=== PATIENT | male | born 2005 | race Caucasian/White ===

== ENCOUNTER 2025-01-24 17:55 | Emergency (ER) | payer BC, SELFPAY ==
--- NOTE | 2025-01-24 18:03 | ED_ITS ---
HPI - General Adult General Chief complaint: General Medical Stated complaint: sent him to have enzymes check per EKG done Time Seen by Provider: 01/24/25 18:57 Source: patient Mode of arrival: ambulatory Limitations: no limitations History of Present Illness ED Provider: ASHLEY BELLE PA-C HPI narrative: 19-year-old male with no significant pmhx presents to the ED today from urgent care for evaluation of epigastric pain/burning primarily after eating x a few days. No radiation of pain. No nausea, vomiting, diarrhea. Reports temporarily with Pepcid and Tums. He presented to urgent care today where he had a normal EKG. They suspected acid reflux and prescribed him omeprazole however recommended that he come to the ED to have his cardiac enzymes checked. He denies any pain/burning sensation present. No surgical history. No medical history. Related Data Allergies Allergy/AdvReac Type Severity Reaction Status Date / Time No Known Allergies Allergy Verified 01/24/25 18:06 Review of Systems 2 Review of Systems: Yes all other systems are reviewed and are negative PMFSH Past Medical History Attestation statement: The following information was validated with the patient. Source: old records reviewed and nursing notes reviewed Social History Social History Advance Directives: No Advance Directives Information Provided: No Physical Exam ED Vital Signs: Vital Signs - 24 hr 01/24/25 18:04 Temperature 97.8 F Pulse Rate 99 Respiratory Rate 18 Blood Pressure 132/63 Pulse Oximetry 99 Oxygen Delivery Method Room Air BMI result Body Mass Index 17.7 vital signs stable General: Well appearing, in no acute distress. Skin: Warm, dry, intact. No rashes or lesions. Head: Normocephalic, atraumatic. EENT: Hearing is intact b/l. Conjunctiva clear. PERRLA. EOM intact. Moist mucous membranes.? Neck: Supple without LAD Cardiac: Chest wall symmetric. RRR Lungs: Normal respiratory effort without accessory muscle use. CTA bilaterally Abdomen: Soft, non-tender, non-distended. No rebound tenderness or guarding. Positive BS x4. Neuro: AOx3. Normal speech. Ambulating with steady gait Course Course Course Narrative: This is a Rapid Medical Examination (RME) performed by Kinjal Belle PA-C in triage. Full HPI, ROS, assessment and treatment plan per primary provider in the Main ED. Hx: 19 yo M here for epigastric pain/burning. pain primarily after eating. taking pepcid at home w/ some relief. presented to , had normal ekg, sent here to look at cardiac enzymes although told he should be placed on omeprazole for his GERD. still has gallbladder. Plan: labs, ekg Reevaluation(s) Reevaluation #1: EKG showing normal sinus rhythm at a rate of 83 beats per minute, no acute ischemic changes or ST elevations. CBC without leukocytosis or left shift. No anemia. H&H stable. Chemistry without acute electrolyte abnormality requiring intervention. No HUNG. Liver function WNL. Troponin undetectable. Presentation is consistent with acid reflux. I have no concern for acute cholecystitis or choledocholithiasis, I do not feel as though imaging is warranted at this time. ACS unlikely. Patient states that urgent care called in a prescription for omeprazole that has waiting at his pharmacy. Advised to take this as prescribed. I will provide him with a referral to our GI specialist. He has no pain at present. Patient has remained stable throughout ED visit today. Discussed worrisome signs and symptoms and when to return to the ED. All questions answered at this time. Patient is agreeable with disposition and stable for discharge. Medical Decision Making Medical Decision Making [facility] Narrative: 19-year-old male with no significant pmhx presents to the ED today from urgent care for evaluation of epigastric pain/burning primarily after eating x a few days. Vital signs stable. Not tachycardic or hypoxic. Afebrile. He is quite anxious appearing however in no acute distress. Differential diagnosis includes gastritis, GERD, PUD, biliary colic, cholecystitis, pancreatitis Unlikely ACS, arrhythmia, pneumonia, pneumothorax Plan for screening labs, trop, ekg. anticipate dc home. Differential Diagnosis Differential Diagnoses: The differential diagnosis associated with the presentation includes as above. Admission/Observation not indicated Lab Data [facility] Lab Attestation statement: I reviewed the patient's lab results. as above. 01/24/25 18:17 01/24/25 18:17 Labs: Lab Results 01/24/25 Range/Units 18:17 WBC 6.2 (4.8-10.8) X10*3/uL RBC 5.38 (4.60-5.80) X10*6/uL Hgb 15.7 (14.0-18.0) g/dl Hct 45.7 (42.0-52.0) % MCV 84.9 (80.0-98.0) fL MCH 29.2 (27.0-33.0) pg MCHC 34.4 (31.0-36.0) g/dl RDW 12.1 (11.0-16.0) % Plt Count 297 (160-400) X10*3/uL MPV 10.2 (9.4-12.4) fL Immature Gran % (Auto) 0.3 (0.0-0.4) % Neut % (Auto) 54.4 (45-73) % Lymph % (Auto) 35.0 (20-40) % Roberts % (Auto) 7.8 (2-11) % Eos % (Auto) 1.5 (0-4) % Baso % (Auto) 1.0 (0-2) % Lymph # (Auto) 2.2 (1.2-4.9) X10*3/uL Roberts # (Auto) 0.5 (0.1-1.2) X10*3/uL Eos # (Auto) 0.1 (0.0-0.4) X10*3/uL Baso # (Auto) 0.1 (0.0-0.2) X10*3/uL Abs Immat Gran (auto) 0.02 (0.00-0.03) X10*3/uL Absolute Neuts (auto) 3.4 (2.0-8.3) x10*3/uL Absolute Nucleated RBC 0.000 (0.0-0.012) X10*3/uL Nucleated RBC % (auto) 0.0 (0.0-0.2) /100WBC Sodium 141 (135-145) mmol/L Potassium 3.6 (3.3-5.1) mmol/L Chloride 105 (96-108) mmol/L Carbon Dioxide 24 (22-29) mmol/L Anion Gap 16 (12-20) BUN 13 (9-16) mg/dL Creatinine 0.83 (0.5-1.4) mg/dL Estim Creat Clear Calc 110.2 Estimated GFR > 60 Random Glucose 98 (60-115) mg/dL Calcium 9.3 (8.4-10.2) mg/dL Magnesium 2.3 (1.6-2.6) mg/dL Total Bilirubin 0.9 (0.0-1.0) mg/dL AST 22 (5-37) U/L ALT 12 (0-40) U/L Alkaline Phosphatase 60 (39-117) U/L Troponin I High Sens < 2.7 (<3.5-35.0) ng/L Total Protein 8.3 H (6.5-8.0) g/dL Albumin 5.4 H (3.5-5.0) g/dL Lipase 19 (8-78) U/L Independent Interpretation I performed an independent interpretation of an: EKG Interpretation: ekg showing NSR, rate of 83 bpm, no acute ischemic changes or st elevations. Radiology Impression Discussion of test interpretation with radiology: I have reviewed the radiologist's reading. Radiologist Impression: Test Reason : CHEST PAIN Blood Pressure : */* mmHG Vent. Rate : 83 BPM Atrial Rate : 83 BPM P-R Int : 128 ms QRS Dur : 94 ms QT Int : 340 ms P-R-T Axes : 52 95 70 degrees QTcB Int : 399 ms Normal sinus rhythm Rightward axis Borderline ECG No previous ECGs available Referred By: Ashley Belle Electronically Signed By: Prescription Management I considered prescription management with: Other (Omeprazole) Social Determinants Patient?s care significantly limited by Social Determinants of Health including: Other Social Determinant of Health Critical Care Time Critical Care Time Critical Care Time: No Discharge Plan Discharge Clinical Impression: Epigastric pain Patient Disposition: Home, Self-Care Instructions: Epigastric Pain (ED) Additional Instructions: Your blood work today is reassuring. Your cardiac enzymes are normal. Your EKG is reassuring. I believe this is your acid reflux. Please picker and sorter load and unload a prescription for omeprazole that was prescribed by urgent care. I have also provided you with a referral to a GI doctor. You may call them to establish care. They will not call you. Follow up with your PCP as needed. Return with any new or worsening symptoms. In the case of an emergency call 911. Referrals: [facility] [Provider Group, Gastroenterology] Physician,Unknown J [Physician, Medical] Print Language: Syriac
[2025-01-24 18:04] VITALS: BP 132/63; PULSE 99; RESP 18; TEMP 36.6; O2SAT 99; BMI 17.7
[2025-01-24 18:23] LABS: MANUAL DIFF FLAG NO
[2025-01-24 18:39] LABS: Alanine Aminotransferase 12 U/L (0-40); Albumin Level 5.4 g/dL (3.5-5.0); Alkaline Phosphatase 60 U/L (39-117); Anion Gap 16 (12-20); Aspartate Amino Transferase 22 U/L (5-37); Blood Urea Nitrogen 13 mg/dL (9-16); Calcium 9.3 mg/dL (8.4-10.2); Carbon Dioxide 24 mmol/L (22-29); Chloride 105 mmol/L (96-108); Creatinine Clr Calc Pharmacy 110.2; Estimated Glomerular Filt Rate > 60; Lipase 19 U/L (8-78); Magnesium 2.3 mg/dL (1.6-2.6); Potassium 3.6 mmol/L (3.3-5.1); Sodium 141 mmol/L (135-145); Total Protein 8.3 g/dL (6.5-8.0)
[2025-01-24 18:47] LABS: Hematocrit 45.7 % (42.0-52.0); Hemoglobin 15.7 g/dl (14.0-18.0); Imm Gran Abs Auto 0.02 X10*3/uL (0.00-0.03); Imm Gran Pct Auto 0.3 % (0.0-0.4); Lymphocytes Absolute Auto 2.2 X10*3/uL (1.2-4.9); Mean Corpuscular HGB Conc 34.4 g/dl (31.0-36.0); Mean Corpuscular Hemoglobin 29.2 pg (27.0-33.0); Mean Corpuscular Volume 84.9 fL (80.0-98.0); NRBC Abs Auto 0.000 X10*3/uL (0.0-0.012); NRBC Pct Auto 0.0 /100WBC (0.0-0.2); Platelet Count 297 X10*3/uL (160-400); Red Blood Count 5.38 X10*6/uL (4.60-5.80); White Blood Count 6.2 X10*3/uL (4.8-10.8)
[2025-01-24 18:50] LABS: Troponin-I High Sensitivity < 2.7 ng/L (<3.5-35.0)
--- OUTSIDE RECORDS SUMMARY | 2025-01-24 19:08 | XMS_ITS | Clinical Summary ---
Author Organization [facility] 's Address [address] [place] [address] Care Team Providers Care Press Operator Assistant Name Role Phone Aviva Reagan DO Primary Care Provider [phone]- [phone] Source Comments Please note that some or all of the patient's information could have additional privacy protections. State laws allow health care providers to render certain types of treatment to minors without parental consent. Please do not assume that this information can be shared solely by obtaining just the consent of the patient's parent/guardian. Please determine if all or part of the patient's care was rendered without parent/guardian involvement. And, if so, obtain the minor's consent prior to disclosure.[facility]'s Allergies No known active allergies Medications No known medications Active Problems No known active problems Family History Medical History Relation Name Comments Anesthesia problems Neg Hx Clotting disorder Neg Hx Social History Tobacco Use Types Packs/Day Years Used Date Smoking Tobacco: Never Smokeless Tobacco: Never Other Needs Answer Date Recorded Anything else about your child you'd like help w ith? Not on file 12/09/2022 Share good news about positive changes: Not on f ile 12/09/2022 Sex and Gender Information Value Date Recorded Sex Assigned at Not on file Legal Sex Male 2:22 AM EST Gender Identity Not on file Sexual Orientation Not on file Last Filed Vital Signs Vital Sign Reading Time Taken Comments Blood Pressure 99/63 02/10/2021 2:34 PM EST Pulse 93 02/10/2021 2:34 PM EST Temperature 36.5 C (97.7 F) 08/03/2013 3:07 PM EDT Respiratory Rate 20 08/03/2013 3:07 PM EDT Oxygen Saturation 100% 08/03/2013 3:07 PM EDT Inhaled Oxygen Concentration - - Weight 55.9 kg (123 lb 3.8 oz) 02/10/2021 2:34 P M EST Height 171 cm (5' 7.32 ) 02/10/2021 2:34 PM EST Body Mass Index 19.12 02/10/2021 2:34 PM EST Body Mass Index Percentile 36.65% 02/10/2021 2:3 4 PM EST Growth Chart: [facility] (Boys, 2-2 0 Years) Plan of Treatment Health Maintenance Due Date Last Done Comments DTaP/TDAP/TD VACCINES (1 - Tdap) 2012 ADOLESCENT HIV SCREENING 2018 COVID-19 Vaccine (3 - season) 2024 08/31/2020, 08/08/2020 INFLUENZA (#1) 2024 NIRSEVIMAB VACCINES UNDER 8 MONTHS Aged Out No longer eligible b ased on patient's age to complete this topic Insurance [facility] Care Teams Press Operator Assistant Relationship Specialty Start Date End Date Aviva Reagan DO [address] [place] [address] PCP - General Family Medicine 01/14/21
--- OUTSIDE RECORDS SUMMARY | 2025-01-24 19:08 | XMS_ITS | Clinical Summary ---
Author Organization [facility] Address [address] [place] [id number] Care Team Providers Care Patient Observation Assistant Name Role Phone Unavailable Primary Care Provider Unavailabl e Social History Tobacco Use Types Packs/Day Years Used Date Smoking Tobacco: Never Assessed Sex and Gender Information Value Date Recorded Sex Assigned at Not on file Legal Sex Male 12:59 PM EDT Gender Identity Not on file Sexual Orientation Not on file Plan of Treatment Health Maintenance Due Date Last Done Comments Hepatitis C Virus Screening 2005 HIV Screening 2018 HPV Vaccines (1 - Male 3-dos e series) 2020 DTaP/Tdap/Td Vaccines (1 - Tdap) 2024 Hepatitis B Vaccines (1 of 3 - 19+ 3-dose series) 2024 COVID-19 Vaccine (1 - 2023-2 5 season) 2024 Pneumococcal Vaccine: Pediat cristiane (0-5 Years) and At-Risk Patients (6 to 49 Years) Aged Out No longer eligible b ased on patient's age to complete this topic
--- OUTSIDE RECORDS SUMMARY | 2025-01-24 19:08 | XMS_ITS | Clinical Summary ---
Author Organization [facility] Address [address] [place] [address] Care Team Providers Care Head Of Transport Logistics Name Role Phone Aviva Reagan DO Primary Care Provider +1- [phone] Allergies No known active allergies Medications No known medications Active Problems No known active problems Immunizations Immunization Administration Dates Next Due COVID-19 mRNA (PFIZER) 08/31/2020,08/08/2020 DTaP 01/29/2008,07/19/2007 DTaP / Hep B / IPV 08/22/2006,04/20/2006, 006 DTaP, Unspecified 01/29/2008,07/19/2007,08/23/19 07,02/09/2006 Hep A, 2 Dose 06/27/2023,12/23/2022 Hep B, Unspecified 07/19/2007,08/22/2006, 006,2005 HiB 11/20/2006,08/22/2006,02/27/2006 Hpv Vaccine 9-valent 03/04/2020,09/02/2019 IPV 10/25/2016,07/19/2007,08/22/2006 ,02/09/2006 Influenza, Quadrivalent 12/13/2022,03/04,03/16/2019,02/18/2018, Influenza, Unspecified 03/12/2007 MMR 11/11/2010,07/19/2007 Meningococcal MCV4P 12/13/2022,09/25/2017 Pneumococcal Conjugate PCV-13 06/03/2008, 007,02/27/2006 Pneumococcal Conjugate PCV-7 03/12/2007,11/21/19 07,02/27/2006 Tdap 10/25/2016 Varicella 11/11/2010,05/30/2007 Family History Medical History Relation Comments Allergy (severe) Father Hypertension Father Cancer Mother Hypertension Paternal Grandfather Diabetes Paternal Grandmother Hypertension Paternal Grandmother Osteoporosis Paternal Grandmother Relation Status Comments Brother Alive Father Alive Maternal Grandfather Alive Maternal Grandmother Alive Mother Paternal Grandfather Alive Paternal Grandmother Alive Social History Tobacco Use Types Packs/Day Years Used Date Smoking Tobacco: Never Smokeless Tobacco: Never Tobacco Cessation:Counseling Given: Not Answered Sex and Gender Information Value Date Recorded Sex Assigned at Male 09/14/2023 12:41 AM EDT Legal Sex Male 11:36 AM EST Gender Identity Male 09/14/2023 12:41 AM EDT Sexual Orientation Straight 09/14/2023 12 :41 AM EDT Last Filed Vital Signs Vital Sign Reading Time Taken Comments Blood Pressure 90/56 12/13/2022 3:11 PM EDT Pulse 118 12/13/2022 3:11 PM EDT Temperature 36.8 C (98.3 F) 12/13/2022 3:11 PM EDT Respiratory Rate - - Oxygen Saturation 99% 12/13/2022 3:11 PM EDT Inhaled Oxygen Concentration - - Weight 54.4 kg (120 lb) 12/13/2022 3:11 PM EDT Height 172.7 cm (5' 8 ) 12/13/2022 3:11 PM EDT Body Mass Index 18.25 12/13/2022 3:11 PM EDT Body Mass Index Percentile 9.16% 12/13/2022 3:1 1 PM EDT Growth Chart: CDC (Boys, 2-2 0 Years) Plan of Treatment Health Maintenance Due Date Last Done Comments HIV Screening 2005 Hepatitis C Screening 11/25/2023 COVID-19 Vaccine (3 - 2024-2 6 season) 2024 08/31/2020, 08/08/2020 Influenza Vaccine (#1) 2024 3, 03/04/2020, 03/16/2019, Additional history exists DTaP,Tdap,and Td Vaccines (6 - Td or Tdap) 10/25/2026 10/25/2016, 01/29/2008, 01/29/2008, Additional history exists Zoster Vaccines (1 of 2) 11/25/2055 Hepatitis B Vaccines Completed 07/19/2007, 08/22/2006, 08/22/2006, Additional history exists Pneumococcal Vaccine: Pediat rics (0 to 5 Years) and At-Risk Patients (6 to 49 Years) Completed 06/03/2008, 03/12/2007, 11/20/2006, Additional history exists MMR Vaccines Completed 11/11/2010, 07/19/2007 HPV Vaccines Completed 03/04/2020, 09/02/2019 Meningococcal Vaccine Completed 12/13/2022, 018 Hepatitis A Vaccines Completed 06/27/2023, 12/24/19 23 Insurance [employer] Care Teams Head Of Transport Logistics Relationship Specialty Start Date End Date Aviva Reagan DO [address] [place] [address] PCP - General Family Medicine 09/02/19
--- OUTSIDE RECORDS SUMMARY | 2025-01-24 19:08 | XMS_ITS ---
Author Name [facility] Organization Unknown History of Medication Use Medication Directions Dispensed Refills Start Date End Date Stat No known medications No known medications active Immunizations Vaccine Date Source Lot Number Status Hep A, 2 Dose 06/27/2023 [facility] [id number] completed Hep A, 2 Dose 12/23/2022 [facility] [id number] completed Influenza, Quadrivalent 12/13/2022 [facility] [id number] c ompleted Meningococcal MCV4P 12/13/2022 [facility] [id number] compl eted COVID-19 mRNA (netTALK) 08/31/2020 [facility] [id number] co mpleted COVID-19 mRNA (netTALK) 08/08/2020 [facility] [id number] co mpleted Hpv Vaccine 9-valent 03/04/2020 [facility] [id number] comp leted Influenza, Quadrivalent 03/04/2020 [facility] [id number] c ompleted Hpv Vaccine 9-valent 09/02/2019 [facility] [id number] comp leted Influenza, Quadrivalent 03/16/2019 [facility] [id number] c ompleted Influenza, Quadrivalent 02/18/2018 [facility] [id number] c ompleted Meningococcal MCV4P 09/25/2017 [facility] [id number] compl eted IPV 10/25/2016 [facility] [id number] completed Tdap 10/25/2016 [facility] [id number] completed Influenza, Quadrivalent 01/29/2015 [facility] [id number] c ompleted MMR 11/11/2010 [facility] completed Varicella 11/11/2010 [facility] completed Pneumococcal Conjugate PCV-13 06/03/2008 [facility] completed DTaP 01/29/2008 [facility] completed DTaP, Unspecified 01/29/2008 [facility] complet ed DTaP 07/19/2007 [facility] completed DTaP, Unspecified 07/19/2007 [facility] complet ed Hep B, Unspecified 07/19/2007 [facility] comple daphney IPV 07/19/2007 [facility] completed MMR 07/19/2007 [facility] completed Varicella 05/30/2007 [facility] completed Influenza, Unspecified 03/12/2007 [facility] co mpleted Pneumococcal Conjugate PCV-7 03/12/2007 [facility] completed HiB 11/20/2006 [facility] completed Pneumococcal Conjugate PCV-13 11/20/2006 [facility] completed Pneumococcal Conjugate PCV-7 11/20/2006 [facility] completed DTaP / Hep B / IPV 08/22/2006 [facility] comple daphney DTaP, Unspecified 08/22/2006 [facility] complet ed Hep B, Unspecified 08/22/2006 [facility] comple daphney HiB 08/22/2006 [facility] completed IPV 08/22/2006 [facility] completed DTaP / Hep B / IPV 04/20/2006 [facility] comple daphney HiB 02/27/2006 [facility] completed Pneumococcal Conjugate PCV-13 02/27/2006 [facility] completed Pneumococcal Conjugate PCV-7 02/27/2006 [facility] completed DTaP, Unspecified 02/09/2006 [facility] complet ed Hep B, Unspecified 02/09/2006 [facility] comple daphney IPV 02/09/2006 [facility] completed DTaP / Hep B / IPV 01/27/2006 [facility] comple daphney Hep B, Unspecified 2005 [facility] comple daphney Encounters Encounter Type Encounter Reason Primary Diagnosis Location Date Ambulatory Encounter for immunization Encounter for immunization [facility] 06/27/2023 Ambulatory [facility] 12/23/2022 Ambulatory Encounter for routin e child health exami Encounter for routine child health examination without abnormal findings [facility] 12/13/2022 Ambulatory Encounter for ro utine child health examination without abnormal findings [facility] 12/07/2021 Care Team Organization Name Specialty Phone Email Start Date End [facility] 02/09/2024 [facility] 12/0711/13/2023 [facility] 12/0712/07/2021 [facility] 12/07/2021
[2025-01-24 19:35] VITALS: BP 132/63; PULSE 99; RESP 18; TEMP 36.6; O2SAT 99
== END 2025-01-24 19:35 | disposition home or self-care (01) ==
PROVIDERS: Physician Assistant Medical; Emergency Provider Emergency Medicine Emergency Medical Services
DX: R10.13 Epigastric pain (principal); R07.9 Chest pain, unspecified
CPT/HCPCS: 36415; 80053; 83690; 83735; 84484; 85025; 93005; 99283

== ENCOUNTER → 2025-01-24 18:01 | Outpatient (BNV) | payer BC, SELFPAY | PROVIDERS: Emergency Provider Emergency Medicine Emergency Medical Services; Visit Provider Internal Medicine | DX: R07.9 Chest pain, unspecified (principal) | CPT/HCPCS: 93010 ==